=== PATIENT | female | born 1970 | race African-American/Black ===

== ENCOUNTER 2019-06-29 07:44 | Emergency (ER) | payer MEDICAID, OTHER ==
[~2019-06-29] VITALS: Ht 172.7 cm; Wt 91.0 kg
[~2019-06-29 07:44] MED LIST: ALBU6.7H INH; FERR-43 PO; FLUT1DIS3 INH; HYDR-519 PO
[2019-06-29 07:51] VITALS: BP 134/68
[2019-06-29] MEDS ORDERED: KETOROLAC 60MG/2ML VIAL IM ONE (08:15)
== END 2019-06-29 08:42 | disposition home or self-care (01) ==
LOC: ER 07:44
DX: S39.012A Strain of muscle, fascia and tendon of lower back, initial encounter (principal); S16.1XXA Strain of muscle, fascia and tendon at neck level, initial encounter; J45.909 Unspecified asthma, uncomplicated; Z98.890 Other specified postprocedural states; Z90.710 Acquired absence of both cervix and uterus; Z88.5 Allergy status to narcotic agent; V43.52XA Car driver injured in collision with other type car in traffic accident, initial encounter; Y93.89 Activity, other specified; Y92.488 Other paved roadways as the place of occurrence of the external cause
CPT/HCPCS: 96372; 99283; J1885

== ENCOUNTER 2019-08-31 07:09 | Emergency (ER) | payer OTHER ==
[~2019-08-31] VITALS: Ht 175.3 cm; Wt 91.0 kg
[2019-08-31 09:19] VITALS: BP 160/60
== END 2019-08-31 09:19 | disposition home or self-care (01) ==
LOC: ER 07:09
DX: L94.2 Calcinosis cutis (principal)
CPT/HCPCS: 73060; 99283